=== PATIENT | female | born 1995 ===

== ENCOUNTER 2022-12-16 15:42 | Inpatient (IN) | payer OTHER ==
[~2022-12-16] VITALS: Ht 152.4 cm; Wt 2.7 kg
[2022-12-16] MEDS ORDERED: PRENATAL TABLE1 EAC1 (19:15)
[2022-12-19] MEDS ORDERED: KETO10TA2 PO (08:08)
[2022-12-19] MEDS ORDERED: OXYC1TAB9 PO (08:09)
== END 2022-12-19 16:24 | disposition home or self-care (01) | DRG 788 ==
LOC: LDR 15:42 → OB/GYN 15:42
PROVIDERS: ADMIT Obstetrics & Gynecology; ATTEND Obstetrics & Gynecology
PROC: 4A1HXCZ Monitoring of Products of Conception, Cardiac Rate, External Approach (ICD-10-PCS; 2022-12-16)
PROC: 10D00Z1 Extraction of Products of Conception, Low, Open Approach (ICD-10-PCS; principal; 2022-12-17)
DX: O36.8130 Decreased fetal movements, third trimester, not applicable or unspecified (principal); Z3A.39 39 weeks gestation of pregnancy; Z37.0 Single live birth; Z20.822 Contact with and (suspected) exposure to COVID-19